=== PATIENT | male | born 1960 ===

== ENCOUNTER 2019-10-05 16:37 | Inpatient (IN) ==
[2019-10-05] MEDS ORDERED: DOCUSATE/SENNA 50-8.6 MG TABLET PO PRN (18:02)
[2019-10-05] MEDS: ACETAMINOPHEN 325 MG TABLET PO PRN (18:31)
[2019-10-05] MEDS: GLIMEPIRIDE 4 MG TABLET PO SCH (18:31)
[2019-10-05] MEDS: PIPERACILLIN/TAZOBACTAM 3,375 MG in SODIUM CHLORIDE 0.9% 100 ML IV SCH (18:32)
[2019-10-05] MEDS: INSULIN LISPRO 100 UNIT/ML SUBCUT SCH (20:50)
[2019-10-06] MEDS: PIPERACILLIN/TAZOBACTAM 3,375 MG in SODIUM CHLORIDE 0.9% 100 ML IV SCH ×3 (02:50→17:23)
[2019-10-06 04:58] LABS: Basophils % 0.2 % (0.0-0.8); Eosinophils # 0.1 10*3/uL (0.0-0.87); Eosinophils % 0.8 % (0.00-10.9); Hematocrit 39.8 VOL% (42.0-52.0); Hemoglobin 13.4 GM/DL (14.0-18.0); Immature Granulocytes % 0.4 %; Immature Granulocytes Absolute 0.05 #; Lymphocytes % 7.5 % (21.2-54.2); Mean Corpuscular HGB Conc 33.7 GM/DL (32-36); Mean Corpuscular Volume 87.9 FL (87-102); Mean Platelet Volume 9.5 FL (9.6-12.0); Monocytes % 6.5 % (1.7-12.7); Neutrophils % 84.6 % (38.7-73.9); Platelet Count 246 T/CUMM (130-400); Red Blood Count 4.53 MC/CUMM (3.8-5.5); Red Cell Distribution Width 13.2 % (9.3-17.3); White Blood Count 13.3 T/CUMM (4-12)
[2019-10-06 05:34] LABS: Calcium 8.7 MG/DL (8.5-10.1); Osmolality,Calculated 273.1 MOS/KG (273-304)
[2019-10-06] MEDS ORDERED: PANTOPRAZOLE 40 MG TABLET PO SCH (09:00)
[2019-10-06] MEDS ORDERED: ASPIRIN CHEW 81 MG TABLET PO SCH (09:00)
[2019-10-06] MEDS: ATORVASTATIN 10 MG TABLET PO SCH (09:27)
[2019-10-06] MEDS: INSULIN LISPRO 100 UNIT/ML SUBCUT SCH ×4 (09:27→23:03)
[2019-10-06] MEDS: CALCIUM (CARBONATE)/VITAMIN D 250 MG-125 UNIT TABLET PO SCH (09:28)
[2019-10-06] MEDS: GLIMEPIRIDE 4 MG TABLET PO SCH (09:28)
[2019-10-06] MEDS: LISINOPRIL 10 MG TABLET PO SCH (09:28)
[2019-10-06] MEDS ORDERED: ONDANSETRON 4 MG/2 ML VIAL IV PRN (11:18)
[2019-10-06] MEDS ORDERED: PROMETHAZINE 25 MG/1 ML VIAL IM PRN (11:18)
[2019-10-06] MEDS ORDERED: SENNA 8.6 MG TABLET PO PRN (11:49)
[2019-10-06] MEDS ORDERED: traMADol 50 MG TABLET PO PRN (11:49)
[2019-10-06] MEDS ORDERED: GLUCAGON 1 MG VIAL IM PRN (12:43)
[2019-10-06] MEDS ORDERED: DEXTROSE 50% 25 GM/50 ML VIAL IV PRN (12:43)
[2019-10-06] MEDS: POLYETHYLENE GLYCOL POWDER 17 GM PACK PO SCH (12:44)
[2019-10-06] MEDS: ACETAMINOPHEN 325 MG TABLET PO PRN (16:02)
[2019-10-06] MEDS: INSULIN GLARGINE 100 UNIT/ML SUBCUT SCH (23:02)
[2019-10-06] MEDS: DOCUSATE SODIUM 100 MG CAPSULE PO SCH (23:02)
[2019-10-07] MEDS: ACETAMINOPHEN 325 MG TABLET PO PRN ×4 (00:25→21:28)
[2019-10-07] MEDS: PIPERACILLIN/TAZOBACTAM 3,375 MG in SODIUM CHLORIDE 0.9% 100 ML IV SCH ×3 (02:32→17:28)
[2019-10-07 05:16] LABS: Basophils % 0.3 % (0.0-0.8); Eosinophils # 0.3 10*3/uL (0.0-0.87); Hematocrit 38.4 VOL% (42.0-52.0); Hemoglobin 12.7 GM/DL (14.0-18.0); Immature Granulocytes % 0.5 %; Immature Granulocytes Absolute 0.06 #; Lymphocytes # 1.2 10*3/uL (1.4-4.0); Lymphocytes % 9.4 % (21.2-54.2); Mean Corpuscular HGB Conc 33.1 GM/DL (32-36); Mean Corpuscular Volume 87.7 FL (87-102); Mean Platelet Volume 9.2 FL (9.6-12.0); Neutrophils % 81.8 % (38.7-73.9); Platelet Count 208 T/CUMM (130-400); Red Blood Count 4.38 MC/CUMM (3.8-5.5); Red Cell Distribution Width 12.8 % (9.3-17.3); White Blood Count 12.8 T/CUMM (4-12)
[2019-10-07 05:34] LABS: Calcium 8.4 MG/DL (8.5-10.1)
[2019-10-07 05:36] LABS: Risk Ratio 2.17; VLDL CHOLESTEROL 20.2 MG/DL
[2019-10-07] MEDS: INSULIN LISPRO 100 UNIT/ML SUBCUT SCH ×4 (07:40→21:36)
[2019-10-07] MEDS: CALCIUM (CARBONATE)/VITAMIN D 250 MG-125 UNIT TABLET PO SCH (09:50)
[2019-10-07] MEDS: PANTOPRAZOLE 40 MG TABLET PO SCH (09:50)
[2019-10-07] MEDS: GLIMEPIRIDE 4 MG TABLET PO SCH (09:50)
[2019-10-07] MEDS: ATORVASTATIN 10 MG TABLET PO SCH (09:50)
[2019-10-07] MEDS: DOCUSATE SODIUM 100 MG CAPSULE PO SCH ×2 (09:50→21:29)
[2019-10-07] MEDS: ASPIRIN EC 81 MG TABLET PO SCH (09:50)
[2019-10-07] MEDS: LISINOPRIL 10 MG TABLET PO SCH (09:50)
[2019-10-07] MEDS: POLYETHYLENE GLYCOL POWDER 17 GM PACK PO SCH (09:51)
[2019-10-07] MEDS: INSULIN GLARGINE 100 UNIT/ML SUBCUT SCH (21:36)
[2019-10-08] MEDS: PIPERACILLIN/TAZOBACTAM 3,375 MG in SODIUM CHLORIDE 0.9% 100 ML IV SCH ×3 (03:03→17:36)
[2019-10-08 05:49] LABS: Basophils % 0.3 % (0.0-0.8); Eosinophils # 0.3 10*3/uL (0.0-0.87); Eosinophils % 2.4 % (0.00-10.9); Hematocrit 35.9 VOL% (42.0-52.0); Hemoglobin 12.2 GM/DL (14.0-18.0); Immature Granulocytes % 0.7 %; Immature Granulocytes Absolute 0.08 #; Lymphocytes % 9.1 % (21.2-54.2); Mean Corpuscular Volume 86.3 FL (87-102); Mean Platelet Volume 9.5 FL (9.6-12.0); Monocytes % 11.7 % (1.7-12.7); Neutrophils % 75.8 % (38.7-73.9); Platelet Count 207 T/CUMM (130-400); Red Blood Count 4.16 MC/CUMM (3.8-5.5); Red Cell Distribution Width 12.7 % (9.3-17.3); White Blood Count 11.3 T/CUMM (4-12)
[2019-10-08 06:12] LABS: Albumin 2.6 G/DL (3.4-5.0); Bilirubin,Total 1.3 MG/DL (0.2-1.0); Calcium 8.7 MG/DL (8.5-10.1); Osmolality,Calculated 262.5 MOS/KG (273-304); Total Protein 7.1 G/DL (6.4-8.3)
[2019-10-08 06:13] LABS: Burr Cells Slight; Platelet Estimate Adequate
[2019-10-08 06:14] LABS: Hypochromasia Slight; Ovalocytes Slight
[2019-10-08] MEDS: INSULIN LISPRO 100 UNIT/ML SUBCUT SCH ×4 (07:20→21:11)
[2019-10-08] MEDS: ACETAMINOPHEN 325 MG TABLET PO PRN (07:41)
[2019-10-08] MEDS ORDERED: LACTATED RINGERS 1,000 ML IV SCH (08:00)
[2019-10-08] MEDS: ASPIRIN EC 81 MG TABLET PO SCH (08:57)
[2019-10-08] MEDS: ATORVASTATIN 10 MG TABLET PO SCH (08:57)
[2019-10-08] MEDS: LISINOPRIL 10 MG TABLET PO SCH (08:57)
[2019-10-08] MEDS: GLIMEPIRIDE 4 MG TABLET PO SCH (08:57)
[2019-10-08] MEDS: PANTOPRAZOLE 40 MG TABLET PO SCH (08:57)
[2019-10-08] MEDS: CALCIUM (CARBONATE)/VITAMIN D 250 MG-125 UNIT TABLET PO SCH (08:57)
[2019-10-08] MEDS: POLYETHYLENE GLYCOL POWDER 17 GM PACK PO SCH (08:57)
[2019-10-08] MEDS: DOCUSATE SODIUM 100 MG CAPSULE PO SCH ×2 (08:57→21:10)
[2019-10-08 10:02] LABS: PT Patient Result 10.8 SECS (9.6-12.2)
[2019-10-08] MEDS: FLUTICASONE 50 MCG NASAL SPRAY 16 GM BOTTLE BOTH NARES SCH (12:53)
[2019-10-08] MEDS ORDERED: MIDAZOLAM 2 MG/2 ML VIAL IV ONE (13:15)
[2019-10-08] MEDS ORDERED: fentaNYL 100 MCG/2 ML VIAL IV ONE (13:15)
[2019-10-08] MEDS ORDERED: SODIUM CHLORIDE 0.45% 1,000 ML IV SCH (13:30)
[2019-10-08] MEDS ORDERED: DIAZEPAM 5 MG TABLET PO ONE (14:00)
[2019-10-08] MEDS ORDERED: DEXTROSE 50% 25 GM/50 ML VIAL IV PRN (17:26)
[2019-10-08] MEDS ORDERED: GLUCAGON 1 MG VIAL IM PRN (17:26)
[2019-10-08] MEDS ORDERED: guaiFENesin 200 MG/10 ML UDCUP PO PRN (19:11)
[2019-10-08] MEDS: INSULIN GLARGINE 100 UNIT/ML SUBCUT SCH (21:10)
[2019-10-09] MEDS: PIPERACILLIN/TAZOBACTAM 3,375 MG in SODIUM CHLORIDE 0.9% 100 ML IV SCH ×2 (01:31→09:15)
[2019-10-09] MEDS: ACETAMINOPHEN 325 MG TABLET PO PRN (03:46)
[2019-10-09 05:58] LABS: Basophils % 0.3 % (0.0-0.8); Eosinophils # 0.2 10*3/uL (0.0-0.87); Eosinophils % 2.4 % (0.00-10.9); Hematocrit 34.2 VOL% (42.0-52.0); Hemoglobin 11.6 GM/DL (14.0-18.0); Immature Granulocytes % 0.4 %; Immature Granulocytes Absolute 0.04 #; Lymphocytes # 0.6 10*3/uL (1.4-4.0); Lymphocytes % 6.5 % (21.2-54.2); Mean Corpuscular HGB Conc 33.9 GM/DL (32-36); Mean Corpuscular Volume 84.9 FL (87-102); Mean Platelet Volume 9.2 FL (9.6-12.0); Monocytes % 12.3 % (1.7-12.7); Neutrophils % 78.1 % (38.7-73.9); Platelet Count 227 T/CUMM (130-400); Red Blood Count 4.03 MC/CUMM (3.8-5.5); Red Cell Distribution Width 12.7 % (9.3-17.3); White Blood Count 9.7 T/CUMM (4-12)
[2019-10-09 06:22] LABS: Albumin 2.4 G/DL (3.4-5.0); Bilirubin,Total 1.5 MG/DL (0.2-1.0); Calcium 8.3 MG/DL (8.5-10.1); Osmolality,Calculated 261.5 MOS/KG (273-304); Total Protein 6.8 G/DL (6.4-8.3)
[2019-10-09] MEDS ORDERED: POTASSIUM CHLORIDE 20 MEQ TABLET PO PRN (07:02)
[2019-10-09] MEDS: INSULIN LISPRO 100 UNIT/ML SUBCUT SCH ×2 (08:16→12:15)
[2019-10-09] MEDS: LISINOPRIL 10 MG TABLET PO SCH (09:16)
[2019-10-09] MEDS: ASPIRIN EC 81 MG TABLET PO SCH (09:16)
[2019-10-09] MEDS: FLUTICASONE 50 MCG NASAL SPRAY 16 GM BOTTLE BOTH NARES SCH (09:16)
[2019-10-09] MEDS: CALCIUM (CARBONATE)/VITAMIN D 250 MG-125 UNIT TABLET PO SCH (09:17)
[2019-10-09] MEDS: DOCUSATE SODIUM 100 MG CAPSULE PO SCH (09:17)
[2019-10-09] MEDS: ATORVASTATIN 10 MG TABLET PO SCH (09:17)
[2019-10-09] MEDS: POLYETHYLENE GLYCOL POWDER 17 GM PACK PO SCH (09:17)
[2019-10-09] MEDS: GLIMEPIRIDE 4 MG TABLET PO SCH (09:17)
[2019-10-09 12:06] VITALS: BP 109/72
== END 2019-10-09 13:11 | disposition home health service (06) | DRG 446 ==
LOC: N.2E
PROVIDERS: ADMIT Surgery; ATTEND Surgery